=== PATIENT | female | born 1955 | race Caucasian/White ===

== ENCOUNTER 2025-04-18 18:33 | Emergency (ER) | payer OTHER, SELFPAY ==
[2025-04-18] VITALS (17 sets, daily range): BP systolic 134–179; BP diastolic 63–118; PULSE 84–95; TEMP 36.6; O2SAT 85–98; BMI 26.5
--- NOTE | 2025-04-18 19:04 | CT_ITS ---
The [address] [address] Patient Name: CAREN KWAN MRN: [id number] date: 1955 Sex: F Assigned Patient Location: ER Current Patient Location: ER Accession/Order Number: [id number] Exam Date: 04/18/2025 19:13 Report Date: 04/18/2025 20:21 At the request of: MICHAEL BLANDON Procedure: CT cervical spine wo con CT head/brain wo con, CT cervical spine wo con 04/18/2025 7:33 PM SIGNS AND SYMPTOMS: ^Fall, hit head on ASA/ Plavix TECHNIQUE:Multi-detector CT axial slices of the brain and cervical spine were obtained without IV contrast. Helical,sagittal, coronal, and 3-D reconstructions of the cervical spine were performed. CT was performed with one or more of the following dose reduction techniques: Automated exposure control, adjustment of the mA and/or kV according to patient size, or use of iterative reconstruction technique. COMPARISON: None. FINDINGS: Noncontrast head CT: There is no shift of the midline structures, mass effects, or evidence of acute ischemia. Subarachnoid blood products are noted in the anterior interhemispheric fissure along the left frontal lobe and along the anterior and superior aspect of the right frontal lobe. This is presumably posttraumatic. There is age-related cortical atrophy. There is periventricular white matter hypoattenuation. The ventricular system is normal in size. The brainstem and the cerebellum are unremarkable. The visualized intraorbital contents, the visualized paranasal sinuses, and the infratemporal soft tissues show no acute abnormality. The osseous structures in the skull base and the calvarium show no abnormality. There is a scalp hematoma in the midline anterior to the vertex. Cervical spine: There is preservation of the vertebral body heights. There is mild disc height loss at C4-5 moderate disc height loss at C5-C6. There is anterior osteophyte formation and uncovertebral joint spurring. No fractures or dislocations are seen. The alignment of the cervical spine is normal. The craniocervical junction and atlantoaxial joint are within normal limits. The prevertebral soft tissues are within normal limits. The paraspinous soft tissues are within normal limits. The lung apices are unremarkable. Atherosclerotic changes are noted in the carotid bifurcations. CT/CT cervical spine wo con IMPRESSION: Subarachnoid blood products are noted in the anterior interhemispheric fissure along the left frontal lobe and along the anterior and superior aspect of the right frontal lobe. There is a scalp hematoma in the midline anterior to the vertex. No acute cervical spine injury. Degenerative changes are noted in the cervical spine. Impression dictated by: Warren Charles M.D. 04/18/2025 8:21 PM Dictation Location: [place] [address] Electronically authenticated by: [id number] Y Date: 04/18/2025 20:21
--- NOTE | 2025-04-18 19:04 | CT_ITS ---
The [address] [address] Patient Name: CAREN KWAN MRN: [id number] date: 1955 Sex: F Assigned Patient Location: ER Current Patient Location: ER Accession/Order Number: [id number] Exam Date: 04/18/2025 19:13 Report Date: 04/18/2025 20:21 At the request of: MICHAEL BLANDON Procedure: CT cervical spine wo con CT head/brain wo con, CT cervical spine wo con 04/18/2025 7:33 PM SIGNS AND SYMPTOMS: ^Fall, hit head on ASA/ Plavix TECHNIQUE:Multi-detector CT axial slices of the brain and cervical spine were obtained without IV contrast. Helical,sagittal, coronal, and 3-D reconstructions of the cervical spine were performed. CT was performed with one or more of the following dose reduction techniques: Automated exposure control, adjustment of the mA and/or kV according to patient size, or use of iterative reconstruction technique. COMPARISON: None. FINDINGS: Noncontrast head CT: There is no shift of the midline structures, mass effects, or evidence of acute ischemia. Subarachnoid blood products are noted in the anterior interhemispheric fissure along the left frontal lobe and along the anterior and superior aspect of the right frontal lobe. This is presumably posttraumatic. There is age-related cortical atrophy. There is periventricular white matter hypoattenuation. The ventricular system is normal in size. The brainstem and the cerebellum are unremarkable. The visualized intraorbital contents, the visualized paranasal sinuses, and the infratemporal soft tissues show no acute abnormality. The osseous structures in the skull base and the calvarium show no abnormality. There is a scalp hematoma in the midline anterior to the vertex. Cervical spine: There is preservation of the vertebral body heights. There is mild disc height loss at C4-5 moderate disc height loss at C5-C6. There is anterior osteophyte formation and uncovertebral joint spurring. No fractures or dislocations are seen. The alignment of the cervical spine is normal. The craniocervical junction and atlantoaxial joint are within normal limits. The prevertebral soft tissues are within normal limits. The paraspinous soft tissues are within normal limits. The lung apices are unremarkable. Atherosclerotic changes are noted in the carotid bifurcations. CT/CT head/brain wo con IMPRESSION: Subarachnoid blood products are noted in the anterior interhemispheric fissure along the left frontal lobe and along the anterior and superior aspect of the right frontal lobe. There is a scalp hematoma in the midline anterior to the vertex. No acute cervical spine injury. Degenerative changes are noted in the cervical spine. Impression dictated by: Warren Charles M.D. 04/18/2025 8:21 PM Dictation Location: [place] [address] Electronically authenticated by: [id number] Y Date: 04/18/2025 20:21
--- NOTE | 2025-04-18 19:04 | XR_ITS ---
The [place] [id number] Patient Name: CAREN KWAN MRN: [id number] date: 1955 Sex: F Assigned Patient Location: ER Current Patient Location: ER Accession/Order Number: [id number] Exam Date: 04/18/2025 19:13 Report Date: 04/18/2025 20:16 At the request of: MICHAEL BLANDON Procedure: XR shoulder LT min 2V XR shoulder LT min 2V 04/18/2025 7:33 PM SIGNS AND SYMPTOMS: ^Fall, pain PROTOCOL: Frontal, Grashey, and scapular Y views of the left shoulder COMPARISON: None FINDINGS: There is a transversely oriented minimally displaced fracture of the neck of the humerus. There is a joint effusion with mild widening of the glenohumeral joint space and downward subluxation of the humeral head as a result. The acromioclavicular joint is preserved. The visualized left hemithorax is intact. XR/XR shoulder LT min 2V IMPRESSION: There is a transversely oriented minimally displaced fracture of the neck of the humerus. There is a joint effusion with mild widening of the glenohumeral joint space and downward subluxation of the humeral head as a result. Impression dictated by: Warren Charles M.D. 04/18/2025 8:16 PM Dictation Location: [place] [address] Electronically authenticated by: [id number] Y Date: 04/18/2025 20:16
--- NOTE | 2025-04-18 19:06 | ECG_ITS ---
The [facility] Test Date: 2025-04-18 Pat Name: CAREN KWAN Department: Room: - Gender: Female Resort Desk Clerk: : 1955 Requested By: [id number] Order Number: [id number] Reading MD: KATIE RODRIGUEZ M.D. Measurements Intervals [place] Rate: 84 P: 56 MA: 148 QRS: -35 QRSD: 88 T: 69 QT: 316 QTc: 358 Interpretive Statements 1100 Sinus rhythm 3114 Cannot rule out anterior myocardial infarction, age undetermined 7200 Abnormal left axis deviation 8102 Low QRS voltage in chest leads 8305 Short QTc interval 9150 abnormal ECG No previous ECG available for comparison Electronically Signed On 04-19-2025 7:38:56 EDT by KATIE RODRIGUEZ M.D.
--- NOTE | 2025-04-18 19:07 | ED.GENADUL1 ---
HPI HPI - General Adult General Chief complaint: Fall Stated complaint: FELL AND HURT HER LEFT SHOULDER Time Seen by Provider: 04/18/25 18:48 Source: patient Mode of arrival: Wheelchair Limitations: no limitations History of Present Illness HPI narrative: Patient is a 69-year-old female that presents with complaints of unwitnessed fall in her hallway at home at about 4 PM. Patient is currently living with her son who was at work but states that the home health aide was there. Patient had a stroke in October and has residual left upper and lower extremity weakness. She does take Plavix/aspirin. Patient's son brought her to the emergency department after he got home from work as she was complaining of left shoulder pain. Patient is amnestic to the fall and did appear to have hit her head as she has an abrasion on the top of her head. She also has a history of insulin-dependent diabetes and hypertension. Related Data Home Medications ?Medication ?Instructions ?Recorded ?Confirmed aspirin 81 mg chewable tablet 81 mg PO DAILY 04/18/25 04/18/25 atorvastatin 80 mg tablet 80 mg PO DAILY 04/18/25 04/18/25 clopidogrel 75 mg tablet 75 mg PO DAILY 04/18/25 04/18/25 hydrochlorothiazide 12.5 mg tablet 12.5 mg PO DAILY 04/18/25 04/18/25 insulin glargine 100 unit/mL (3 50 unit subcut DAILY 04/18/25 04/18/25 mL) subcutaneous pen (Basaglar KwikPen U-100 Insulin) losartan 25 mg tablet 25 mg PO DAILY 04/18/25 04/18/25 terbinafine HCl 250 mg tablet 250 mg PO DAILY 04/18/25 04/18/25 tizanidine 2 mg tablet 4 mg PO DAILY 04/18/25 04/18/25 Allergies Allergy/AdvReac Type Severity Reaction Status Date / Time Penicillins Allergy Severe Rash Verified 04/18/25 18:41 Opioid HPI Opioid Management Most Recent Opioid Data: Last Pain Scale 10 04/18/25, 19:51 Last SEP Pain Assessment 04/18/25, 19:51 Review of Systems ROS Status of ROS 10 or more systems reviewed and unremarkable except as noted in history and below PFSH PFSH Social History Little interest or pleasure in doing things: not at all Feeling down, depressed, or hopeless: not at all Exam Narrative Exam Narrative: General: No distress, age-appropriate Skin: Warm, dry, no pallor. No rash. Head: Normocephalic, mild abrasion to top of head. Neck: Supple, non-tender. Eye: Pupils are equal, round and EOMI. No scleral icterus. Ears, Nose, Mouth, and Throat: No nasal mucosal hypertrophy. Oral mucosa is moist, no posterior oropharynx erythema, uvula is mid-line Cardiovascular: Regular Rate and Rhythm without murmur, gallop or rub. Respiratory: No accessory muscle use or respiratory distress. Lungs are clear to auscultation, no wheezing, rales or rhonchi Chest Wall: no tenderness Back: No midline thoracic or lumbar vertebral tenderness. Abrasion to left side of thoracic area of back Musculoskeletal: Full ROM of all extremities, except left upper extremity and left lower extremity. 5/5 strength RUE/RLE. 0/5 L shoulder flexion and hip flexion, 1/5 knee flexion/extension. 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 No calf or popliteal tenderness. L Shoulder ecchymosis and swelling. Tenderness with palpation. Lidocaine patch in place L shoulder. GI: Abdomen is soft, non-distended, non tender to palpation. No masses appreciated. No rebound, guarding, or rigidity noted. Neurological: A&O x4. No cranial nerve dysfunction observed. No truncal ataxia. Moves all extremities. Sensation intact. Psychiatric: Cooperative and interactive. Normal mood and affect. Constitutional Vital Signs, click to edit/add: Last Vital Signs Temp 97.8 F 04/18/25 18:41 Pulse 88 04/18/25 22:10 Resp 15 04/18/25 22:10 BP 134/77 04/18/25 22:00 Pulse Ox 91 L 04/18/25 22:10 O2 Del Method Room Air 04/18/25 21:47 Course Vital Signs Vital signs: Vital Signs Temperature 97.8 F 04/18/25 18:41 Pulse Rate 87 04/18/25 18:41 Respiratory Rate 20 04/18/25 18:41 Blood Pressure 179/118 H 04/18/25 18:41 Pulse Oximetry 98 04/18/25 18:41 Oxygen Delivery Method Room Air 04/18/25 18:41 Temperature 97.8 F 04/18/25 18:41 Pulse Rate 88 04/18/25 22:10 Respiratory Rate 15 04/18/25 22:10 Blood Pressure 134/77 04/18/25 22:00 Pulse Oximetry 91 L 04/18/25 22:10 Oxygen Delivery Method Room Air 04/18/25 21:47 Medical Decision Making MDM Narrative Medical decision making narrative: The patient is a 69-year-old female with a past medical history significant for a stroke in October (with residual left-sided upper and lower extremity weakness), insulin-dependent diabetes mellitus (IDDM), hypertension (HTN), and dual antiplatelet therapy (Plavix and aspirin). She presents to the ED after an unwitnessed fall at home around 4 PM. The patient lives with her son, who was at work at the time, but a home health aide was reportedly present. The patient is amnestic to the fall but complains of left shoulder pain. An abrasion was noted on the top of her head, suggesting possible head trauma. No reported loss of consciousness, seizure activity, or post-ictal confusion was observed by caregivers. Son brought the patient to the ED upon returning home due to persistent complaints of pain and concern for possible shoulder injury. On arrival patient is in no distress, pain with palpation of the left shoulder or attempts to move the left arm. GCS 15. She states that the left upper and lower extremity weakness is at baseline. Blood pressure is hypertensive, systolic in the 170s. Vitals are hemodynamically stable. CT Head and Cervical spine, XR L Shoulder ordered. CBC/ BMP, Trop, UA ordered. 0.5mg IM Dilaudid ordered for pain. Left frontal and right frontal subarachnoid blood products noted on CT head. Left proximal humerus fracture noted on shoulder x-ray. I did update patient and her son of imaging results and need for trauma transfer. Patient agreeable with plan. I did initiate transfer with [facility] and spoke with Dr. Sheridan with trauma who accepts patient. Patient to be transferred to the ER and trauma will see as a consult there. Subarachnoid hemorrhage - On Plavix/ ASA from previous stroke. - GCS 15, LUE/LLE weakness at baseline - CT with findings as above, no midline shift - 1g Keppra given - BP systolic goal under 140, 10mg Hydralazine ordered, BP checked prior to administration and systolic in 130's, order cancelled. Left proximal humerus fracture - Humeral neck fx, min displaced, pseudosubluxation of the GH joint - 2+ radial pulse palpated, distally neurovascularly intact - Sling placed for comfort Fall?possibly syncopal - Pt amnestic to fall, unwitnessed - EKG in NSR, no acute ischemic changes - Trop wnl Patiet was transferred to [facility] via EMS in stable condition for further trauma, neurosurgery, and ortho evaluation and management. Differential Diagnosis Differential Diagnosis: Intracranial hemorrhage, left shoulder fracture Lab Data Lab results reviewed: Yes I reviewed the patient's lab results Labs: Lab Results 04/18/25 Range/Units 19:34 WBC 19.0 H (4.0-11.0) 10^3/uL RBC 4.42 (4.20-5.40) 10^6/uL Hgb 13.4 (12.0-16.0) g/dL Hct 38.2 (36.0-48.0) % MCV 86.4 (81.0-99.0) fL MCH 30.3 (26.7-34.0) pg MCHC 35.1 (29.9-35.2) g/dL RDW 12.7 (11.0-15.0) % Plt Count 216 (150-450) 10^3/uL MPV 12.2 (9.5-13.5) fL Neut % (Auto) 81.5 H (43.0-75.0) % Lymph % (Auto) 11.3 L (20.5-60.0) % [place] % (Auto) 5.9 (1.7-12.0) % Eos % (Auto) 0.3 L (0.9-7.0) % Baso % (Auto) 0.5 (0.2-2.0) % Neut # (Auto) 15.4 H (1.4-6.5) 10^3/uL Lymph # (Auto) 2.2 (1.2-3.8) 10^3/uL [place] # (Auto) 1.1 H (0.3-0.8) 10^3/uL Eos # (Auto) 0.1 (0.0-0.7) 10^3/uL Baso # (Auto) 0.1 (0.0-0.1) 10^3/uL Abs Immat Gran (auto) 0.10 H (0.00-0.03) 10^3/uL Imm/Tot Granulo (auto) 0.5 (0.0-0.5) % Sodium 140 (136-145) mmol/L Potassium 3.4 L (3.5-5.1) mmol/L Chloride 98 (98-107) mmol/L Carbon Dioxide 31.0 (21.0-32.0) mmol/L Anion Gap 14.4 BUN 17.0 (7.0-18.0) mg/dL Creatinine 0.88 (0.55-1.02) mg/dL Est GFR ( Amer) >60 (>=60 mL/min/1.73m^2) Est GFR (Non-Af Amer) >60 (>=60 mL/min/1.73m^2) BUN/Creatinine Ratio 19.3 Glucose 192 H (74-106) mg/dL Calcium 9.2 (8.5-10.1) mg/dL Troponin I High Sens 21.7 (4.0-51.3) pg/mL Imaging Data CT scan - head: Attestation: I have reviewed the pertinent imaging results. Radiologist's impression: ITS Impressions Cervical Spine CT 04/18/25 19:04 IMPRESSION: Subarachnoid blood products are noted in the anterior interhemispheric fissure along the left frontal lobe and along the anterior and superior aspect of the right frontal lobe. There is a scalp hematoma in the midline anterior to the vertex. No acute cervical spine injury. Degenerative changes are noted in the cervical spine. Impression dictated by: Warren Charles M.D. 04/18/2025 8:21 PM Dictation Location: [facility] Electronically authenticated by: [id number] Y Date: 04/18/2025 20:[address] 04/18/25 19:04 IMPRESSION: Subarachnoid blood products are noted in the anterior interhemispheric fissure along the left frontal lobe and along the anterior and superior aspect of the right frontal lobe. There is a scalp hematoma in the midline anterior to the vertex. No acute cervical spine injury. Degenerative changes are noted in the cervical spine. Impression dictated by: Warren Charles M.D. 04/18/2025 8:21 PM Dictation Location: [id number] Electronically authenticated by: [id number] Y Date: 04/18/2025 20:21 Shoulder X-Ray 04/18/25 19:04 IMPRESSION: There is a transversely oriented minimally displaced fracture of the neck of the humerus. There is a joint effusion with mild widening of the glenohumeral joint space and downward subluxation of the humeral head as a result. Impression dictated by: Warren Charles M.D. 04/18/2025 8:16 PM Dictation Location: [place] [address] Electronically authenticated by: [id number] Y Date: 04/18/2025 20:16 ECG Data Attestation: ?I have reviewed the pertinent ECG results. Discharge Plan Discharge Chief Complaint: Fall Clinical Impression: Traumatic subarachnoid hemorrhage, Fracture of proximal end of humerus, Fall Patient Disposition: [facility] Time of Disposition Decision: 21:25 Discharge Location: [facility] Discharge location: [facility] ER Condition: Fair Mode of Transportation: EMS Discharge Date/Time: 04/18/25 22:30
[2025-04-18 19:47] LABS: Hematocrit 38.2 % (36.0-48.0); Hemoglobin 13.4 g/dL (12.0-16.0); Immature Granulocytes Abs Auto 0.10 10^3/uL (0.00-0.03); Immature Granulocytes Pct Auto 0.5 % (0.0-0.5); Lymphocytes Absolute Auto 2.2 10^3/uL (1.2-3.8); Mean Corpuscular HGB Conc 35.1 g/dL (29.9-35.2); Mean Corpuscular Hemoglobin 30.3 pg (26.7-34.0); Mean Corpuscular Volume 86.4 fL (81.0-99.0); Platelet Count 216 10^3/uL (150-450); Red Blood Count 4.42 10^6/uL (4.20-5.40); White Blood Count 19.0 10^3/uL (4.0-11.0)
[2025-04-18] MEDS: HYDROMORPHONE HCL 0.5 MG/0.5 ML SYRINGE IM (19:51)
[2025-04-18 20:04] LABS: Anion Gap 14.4; Blood Urea Nitrogen 17.0 mg/dL (7.0-18.0); Calcium 9.2 mg/dL (8.5-10.1); Carbon Dioxide 31.0 mmol/L (21.0-32.0); Chloride 98 mmol/L (98-107); Estimated GFR (African America >60 (>=60 mL/min/1.73m^2); Estimated GFR (Non-African Ame >60 (>=60 mL/min/1.73m^2); Glucose 192 mg/dL (74-106); Potassium 3.4 mmol/L (3.5-5.1); Sodium 140 mmol/L (136-145)
== END 2025-04-18 22:30 | disposition short-term general hospital (02) ==
PROVIDERS: Physician Assistant; Emergency Provider Emergency Medicine; PCP Family Medicine
DX: S06.6XAA Traumatic subarachnoid hemorrhage with loss of consciousness status unknown, initial encounter (principal); S42.212A Unspecified displaced fracture of surgical neck of left humerus, initial encounter for closed fracture; W18.39XA Other fall on same level, initial encounter; I69.354 Hemiplegia and hemiparesis following cerebral infarction affecting left non-dominant side; E11.9 Type 2 diabetes mellitus without complications; Z79.4 Long term (current) use of insulin; I10 Essential (primary) hypertension; Z79.82 Long term (current) use of aspirin; Z79.02 Long term (current) use of antithrombotics/antiplatelets
CPT/HCPCS: 36415; 70450; 72125; 73030; 76376; 80048; 84484; 85025; 93005; 96372; 96374; 99285; J1171; J1953